=== PATIENT | female | born 1955 | race Caucasian/White ===

== ENCOUNTER 2023-10-03 19:42 | Emergency (ER) | payer MEDICARE, MEDICAID ==
[~2023-10-03] VITALS: Ht 154.9 cm; Wt 153.6 kg
[~2023-10-03 19:42] MED LIST: ASPIRIN E.C. 8181 MG PO; CRESTOR5 MG PO; CYMBALTA 60MG60 MG PO; DESYREL DIVIDO150 M1 PO; DITROPAN 5MG TAB5 MG PO; FLEXERIL 1010 MG/TAB PO; HAIRSKINNAILS PO; MASON NATURAL2000 IU PO; MAXITROL OPHTH3.5 GM OS; PREDFORTE5ML OS; PROAIR HFA0.09 MG/AC INH; RELAFEN750 MG PO; SYSTANE 0.3-0.1 EACH; TOPROL XL 25MG25 MG PO; VALTREX1 GM PO; ZYRTEC 10MG10 MG PO
[2023-10-03 19:45] VITALS: TEMP 97.1
[2023-10-03 20:51] LABS: BASO # 0.1 K/mm3 (0.0-0.2); BASO % 0.8 % (0.0-2.0); EOS # 0.3 K/mm3 (0.0-0.7); GRAN # 4.2 K/mm3 (1.4-6.5); GRAN % 63.5 % (42.2-75.2); HEMOGLOBIN 15.4 g/dl (12.5-16.0); LYMPH # 1.5 K/mm3 (1.2-3.4); LYMPH % 23.4 % (20.0-51.0); MEAN CELL VOLUME 89 fl (80.0-100.0); MEAN CORPUSCULAR HEMOGLOBIN 29 pg (27-31); MEAN CORPUSCULAR HGB CONC 32 g/dl (33.0-37.0); MEAN PLATELET VOLUME 11.7 fl (7.4-10.4); MONO # 0.5 K/mm3 (0.1-0.6); MONO % 8.1 % (1.7-9.3); PLATELET COUNT 200 K/mm3 (130-400); RED BLOOD COUNT 5.37 M/mm3 (4.10-5.30); REDCELL DISTRIBUTION WIDTH-CV 14.5 % (11.5-14.5)
[2023-10-03 20:54] LABS: PROTHROMBIN TIME 11.1 SECONDS (9.7-12.8)
[2023-10-03 20:56] LABS: PARTIAL THROMBOPLASTIN TIME 33.3 SECONDS (26.0-37.0)
[2023-10-03 21:03] LABS: ALBUMIN 3.2 g/dL (3.4-4.8); BILIRUBIN,TOTAL 0.4 mg/dL (0.2-1.2); C-REACTIVE PROTEIN 1.55 mg/dL (0.00-0.50); CALCIUM 10.3 mg/dL (8.4-10.2); CREATININE, serum 1.15 mg/dL (0.57-1.11); MAGNESIUM 1.7 mg/dL (1.6-2.6)
[2023-10-03] MEDS ORDERED: Iohexol 350 - 100 ML VIAL IV ONE (22:04)
[2023-10-03] MEDS ORDERED: NS 60 ML IV ONE (22:05)
[2023-10-03 22:40] LABS: COLLECTION METHOD CATHETER
[2023-10-03 22:53] LABS: PH 5.5 (5.0-8.5); URINE APPEARANCE CLEAR (CLEAR/HAZY); URINE BLOOD NEGATIVE (NEGATIVE); URINE COLOR YELLOW (YELLOW); URINE GLUCOSE NEGATIVE (NEGATIVE); URINE KETONE NEGATIVE (NEGATIVE); URINE NITRATE NEGATIVE (NEGATIVE); URINE PROTEIN(semi-quant) TRACE (NEGATIVE); URINE UROBILINOGEN 0.2 E.U/dL (0.2-1.0)
[2023-10-04] MEDS ORDERED: LIDODERM 5% PATC1 EA TP (00:32)
[2023-10-04] MEDS ORDERED: Lidocaine 4% Topical Patch TP ONE (00:45)
[2023-10-04 01:00] VITALS: BP 146/99; PULSE 79
== END 2023-10-04 01:00 | disposition home or self-care (01) ==
LOC: COL.ER 19:42
PROVIDERS: Emergency Medicine
DX: S39.92XA Unspecified injury of lower back, initial encounter (principal); W19.XXXA Unspecified fall, initial encounter; Y92.009 Unspecified place in unspecified non-institutional (private) residence as the place of occurrence of the external cause
CPT/HCPCS: Q9967